=== PATIENT | female | born 1980 | race African-American/Black ===

== ENCOUNTER 2021-05-13 10:39 | Emergency (ER) | payer BC, SELFPAY ==
[~2021-05-13] VITALS: Ht 170.2 cm; Wt 85.7 kg
[2021-05-13 10:40] VITALS: BP_SYST 134
[2021-05-13] MEDS ORDERED: NACL 0.9% 1,000 ML IV ONE (11:15)
[2021-05-13] MEDS ORDERED: HALOPERIDOL LACTATE 5 MG/ML VIAL IVP ONE (11:15)
[2021-05-13] MEDS ORDERED: DIPHENHYDRAMINE INJ 50 MG/ML VIAL IVP ONE (11:15)
[2021-05-13 12:05] LABS: BASOPHILS % (AUTO) 0.4 % (0.0-2.0); EOSINOPHILS % (AUTO) 0.1 % (0.0-4.0); HEMATOCRIT 39.4 % (36-48); HEMOGLOBIN 13.4 g/dL (12.0-16.0); LYMPHOCYTES # (AUTO) 1.1 K/uL (1.0-5.5); LYMPHOCYTES % (AUTO) 10.3 % (20.5-51.5); MEAN CORPUSCULAR HEMOGLOBIN 30 pg (27-31); MEAN CORPUSCULAR HGB CONC 34 % (32-36); MEAN CORPUSCULAR VOLUME 89 fL (79.0-98.0); MONOCYTES # (AUTO) 0.4 K/uL (0.0-1.0); NEUTROPHILS # (AUTO) 9.5 K/uL (1.8-7.7); NEUTROPHILS % (AUTO) 85.2 % (40.0-70.0); PLATELET COUNT (AUTO) 272 K/uL (130-430); RED BLOOD CELL COUNT(AUTO) 4.41 MIL/uL (4.2-6.2); RED CELL DISTRIBUTION WIDTH 12.8 % (9.0-15.0); WHITE BLOOD COUNT (AUTO) 11.2 K/uL (4.8-10.8)
[2021-05-13] MEDS ORDERED: TRAM50TA PO ×2 (12:08)
[2021-05-13] MEDS ORDERED: DICL100G59 TP ×2 (12:08)
[2021-05-13 12:15] LABS: CALCIUM 9.8 mg/dL (8.4-11.0); CREATININE 1.29 mg/dL (0.55-1.30); POTASSIUM 3.6 mmol/L (3.5-5.1)
[2021-05-13 12:21] LABS: ALBUMIN 4.3 g/dL (3.4-4.8); TOTAL BILIRUBIN 0.6 mg/dL (0.0-1.0)
[2021-05-13] MEDS ORDERED: BENZTROPINE MESYLATE 2 MG/ 2 ML AMP IVP ONE (12:30)
[2021-05-13] MEDS ORDERED: ONDA-8 TL (12:30)
[2021-05-13] MEDS ORDERED: OMEP20CA15 PO (12:30)
[2021-05-13 12:47] VITALS: BP_SYST 135
== END 2021-05-13 12:47 | disposition home or self-care (01) ==
LOC: SED 10:39
DX: K31.84 Gastroparesis (principal); Z79.899 Other long term (current) drug therapy
CPT/HCPCS: 36415; 80053; 83690; 85025; 93005; 96361; 96374; 96375; 99284; J0515; J1200; J1630; J7030